=== PATIENT | female | born 1965 | race Native Hawaiian/Other Pacific Islander ===

== ENCOUNTER 2018-10-20 14:19 | Emergency (ER) | payer OTHER ==
[2018-10-20 14:20] VITALS: BMI 47.0
[2018-10-20 14:25] VITALS: RESP 18
[2018-10-20] MEDS ORDERED: Sodium Chloride 0.9% 1,000 ML IV STA (14:31)
--- NOTE | 2018-10-20 14:56 | ED PDOC ---
HPI: Allergic Reaction Time Seen by Provider: 10/20/18 14:25 Chief Complaint (Nursing): Allergic Reaction Chief Complaint (Provider): Allergic reaction History Per: Patient History/Exam Limitations: no limitations Onset/Duration Of Symptoms: Mins Current Symptoms Are (Timing): Still Present Context: Food Possible Cause: Food Associated Symptoms: Trouble Swallowing. denies: Chest Pain Home/EMS Treatment: Benadryl (50 mg), Steroids (prednisone 20mg) Additional History Per: Patient Additional Complaint(s): 53yo female with history of multiple food and medication allergies, comes to ER for evaluation due to an allergic reaction, occurring 1 hr prior to arrival. Patient states she ate nando fruit for the first time and immediately after felt her throat tightening and had trouble swallowing. She reports taking 50mg Benadryl and 20mg Prendisone prior to arrival but the symptoms still persist. She denies any chest pain, shortness of breath or vomiting. No additional complaints. PMD: Dr. Chanel Past Medical History Reviewed: Historical Data, Nursing Documentation, Vital Signs Vital Signs: Last Vital Signs Temp Pulse 88 10/20/18 14:22 Resp 18 10/20/18 14:22 BP Pulse Ox 100 10/20/18 14:22 - Medical History PMH: Asthma, Diabetes, HTN, Hypercholesterolemia, Hyperlipidemia - Surgical History Surgical History: (x 3) - Family History Family History: States: Unknown Family Hx - Home Medications Home Medications: Ambulatory Orders Medication Instructions Recorded Ibuprofen [Motrin] 600 mg PO Q8 PRN #6 tab 07/15/15 Albuterol Sulfate [Proair Hfa] 2 PO 05/24/16 Olmesartan/Hydrochlorothiazide 1 tab PO DAILY 05/24/16 [Benicar Hct 12.5 mg-40 mg] metFORMIN [glucOPHAGE] 500 mg PO BID 05/24/16 DiphenhydrAMINE [Benadryl] 25 mg PO Q6H PRN #10 cap 10/20/18 Epinephrine HCl [Epipen 0.3 mg MR Q5MIN PRN #1 each 10/20/18 Auto-Injector] Famotidine [Pepcid] 20 mg PO BID PRN #10 tab 10/20/18 predniSONE [Prednisone] 40 mg PO DAILY #8 tab 10/20/18 - Allergies Allergies/Adverse Reactions: Allergies Allergy/AdvReac Type Severity Reaction Status Date / Time latex Allergy RASH Verified 10/20/18 14:40 Penicillins Allergy RASH Verified 10/20/18 14:22 nando Allergy SHORTNESS Uncoded 10/20/18 14:40 OF BREATH Review of Systems ROS Statement: Except As Marked, All Systems Reviewed And Found Negative ENT: Positive for: Throat Swelling, Other (trouble swallowing) Cardiovascular: Negative for: Chest Pain Respiratory: Negative for: Shortness of Breath Gastrointestinal: Negative for: Vomiting Physical Exam - Reviewed Nursing Documentation Reviewed: Yes Vital Signs Reviewed: Yes - Physical Exam Appears: Positive for: Non-toxic Head Exam: Positive for: ATRAUMATIC, NORMAL INSPECTION, NORMOCEPHALIC Skin: Positive for: Normal Color, Warm, Dry. Negative for: Rash Eye Exam: Positive for: EOMI, PERRL ENT: Positive for: TM Is/Are (clear), Other (uvula midline, no angioedema noted.). Negative for: Pharyngeal Erythema, Tonsillar Exudate, Tonsillar Swelling Neck: Positive for: Normal, Painless ROM, Supple Cardiovascular/Chest: Positive for: Regular Rate, Rhythm. Negative for: Tachycardia Respiratory: Positive for: Normal Breath Sounds. Negative for: Wheezing, Respiratory Distress Gastrointestinal/Abdominal: Positive for: Normal Exam, Soft Back: Positive for: Normal Inspection Extremity: Positive for: Normal ROM Neurological/Psych: Positive for: Awake, Alert, Oriented (x 3) - ECG O2 Sat by Pulse Oximetry: 100 (RA) Pulse Ox Interpretation: Normal - Progress ED Course And Treament: Impression: Allergic reaction Plan: -- IV Fluids -- Pepcid 20mg IV -- Solumedrol 125mg IV 1600 On reassessment, patient reports feeling much better. Repeat exam within normal limits, no respiratory distress. Patient is stable for discharge home, and informed to follow up with PMD in 1-2 days FOR REFERRAL [facility]. Scribe Attestation: Documented by Aaliyah Vásquez acting as a scribe for Tamie Huynh MD. Provider Attestation: All medical record entries made by the Scribe were at my direction and personally dictated by me. I have reviewed the chart and agree that the record accurately reflects my personal performance of the history, physical exam, medical decision making, and the department course for this patient. I have also personally directed, reviewed, and agree with the discharge instructions and disposition. Disposition - Clinical Impression Clinical Impression: Allergic reaction - Patient ED Disposition Is Patient to be Admitted: No Counseled Patient/Family Regarding: Studies Performed, Diagnosis, Need For Followup - Disposition Disposition: Routine/Home Disposition Time: 17:00 Condition: IMPROVED Additional Instructions: FOLLOW UP WITH DR CHANEL 1-2 DAYS FOR REFERRAL TO [facility] RETURN TO THE ED WITH ANY WORSENING OR CONCERNING SYMPTOMS Prescriptions: Epinephrine HCl [Epipen Auto-Injector] 0.3 mg MR Q5MIN PRN #1 each PRN Reason: Anaphylaxis DiphenhydrAMINE [Benadryl] 25 mg PO Q6H PRN #10 cap PRN Reason: Allergy Symptoms Famotidine [Pepcid] 20 mg PO BID PRN #10 tab PRN Reason: Heartburn predniSONE [Prednisone] 40 mg PO DAILY #8 tab Instructions: Food Allergy Forms: [facility] (Ivorian)
[2018-10-20 16:58] VITALS: BP 116/69; PULSE 70; TEMP 98.4; O2SAT 98
== END 2018-10-20 16:58 | disposition home or self-care (01) ==
LOC: H.ER 14:19
DX: T78.40XA Allergy, unspecified, initial encounter (principal); E11.9 Type 2 diabetes mellitus without complications; I10 Essential (primary) hypertension; J45.909 Unspecified asthma, uncomplicated; Z79.84 Long term (current) use of oral hypoglycemic drugs; Z88.0 Allergy status to penicillin
CPT/HCPCS: 81025; 96361; 96374; 96375; 99284; J2930; J7030